=== PATIENT | male | born 1955 | race Caucasian/White ===

== ENCOUNTER 2019-05-12 12:15 | Emergency (ER) | payer OTHER ==
[2019-05-12 13:23] VITALS: BP 129/81; PULSE 74
[2019-05-12] MEDS ORDERED: Vancomycin 1GM/ Ns 250ML*** 1 GM/250 ML IVPB IV ONE (13:25)
[2019-05-12] MEDS ORDERED: Rabavert 2.5 UNITS IM ONE (13:25)
[2019-05-12] MEDS ORDERED: IMOVAX RABIES VACCINE 2.5 UNITS IM ONE (13:27)
[2019-05-12] MEDS ORDERED: TORAdol 30 mg Injection IV ONE (13:27)
--- NOTE | 2019-05-12 13:37 | ERPHSYRPT ---
- History of Present Illness Time Seen by Provider: 05/12/19 13:31 Source: patient Exam Limitations: no limitations Patient Subjective Stated Complaint: Bit by a dog a week ago today in [place], [place], has been self treating, now has a open wound of 2cm x 4cm and is turning green, huge reddened area around the wound, pt knows nothing about the dog and a report was not made in [place] Triage Nursing Assessment: Pt walked into the ER, vitals wnl, pulses normal, denies pain, Physician History: Mr Bell is a 64 years old male with hx of HTN, was bit by a dog a week ago today in [place], [place], has been self treating, now has a open wound of 2cm x 4cm and is turning green, huge reddened area around the wound, patient knows nothing about the dog and a report was not made in [place] Timing/Duration: week(s) (1 weeks ago) Severity: severe Modifying Factors: Improves With: immobilization Associated Symptoms: denies symptoms Allergies/Adverse Reactions: No Known Drug Allergies Allergy (Verified 05/12/19 13:28) Home Medications: Amlodipine Besylate 5 mg [Norvasc 5 mg] 5 mg PO DAILY 05/12/19 [History] Buspirone HCl [Buspar] 10 mg PO TID 05/12/19 [History] Famotidine [Pepcid] 40 mg PO DAILY 05/12/19 [History] Lisinopril 40 mg PO DAILY 05/12/19 [History] Metoprolol Succinate 25 mg Xl* [Toprol-Xl 25MG Tablets] 25 mg PO DAILY [History] Venlafaxine HCl [Venlafaxine HCl ER] 225 mg PO DAILY 05/12/19 [History] Hx Tetanus, Diphtheria Vaccination/Date Given: No - Review of Systems Constitutional: No Fever, No Chills Eyes: No Symptoms Ears, Nose, & Throat: No Symptoms Respiratory: No Cough, No Dyspnea Cardiac: No Chest Pain, No Edema, No Syncope Abdominal/Gastrointestinal: No Abdominal Pain, No Nausea, No Vomiting, No Diarrhea Genitourinary Symptoms: No Dysuria Musculoskeletal: No Back Pain, No Neck Pain Skin: Cellulitis (open bite wound on left lower leg with dark santana tissue with foul smelling, no active dischage), No Rash Neurological: No Dizziness, No Focal Weakness, No Sensory Changes Psychological: No Symptoms Endocrine: No Symptoms All Other Systems: Reviewed and Negative - Past Medical History Cardiac History: Hypertension Psycho-Social History: Anxiety, Depression - Past Surgical History Past Surgical History: Yes Cardiac: Cardiac Stent Musculoskeletal: Orthopedic Surgery Other Surgical History: stents in bilateral lower legs, ablasion - Social History Smoking Status: Current every day smoker How long have you smoked: 6 years Exposure to second hand smoke: Yes Drug Use: none Patient Lives Alone: Yes - Nursing Vital Signs Nursing Vital Signs: Initial Vital Signs Pulse Rate 74 05/12/19 12:58 Blood Pressure 129/81 05/12/19 12:58 O2 Sat by Pulse Oximetry 99 05/12/19 12:58 Pain Scale Pain Intensity 0 - Physical Exam General Appearance: no apparent distress, alert Eye Exam: PERRL/EOMI, eyes nml inspection Ears, Nose, Throat Exam: normal ENT inspection, TMs normal, pharynx normal, moist mucous membranes Neck Exam: normal inspection, non-tender, supple, full range of motion Respiratory Exam: normal breath sounds, lungs clear, No respiratory distress Cardiovascular Exam: regular rate/rhythm, normal heart sounds, normal peripheral pulses Gastrointestinal/Abdomen Exam: soft, normal bowel sounds, No tenderness, No mass Back Exam: normal inspection, normal range of motion, No CVA tenderness, No vertebral tenderness Extremity Exam: normal inspection, normal range of motion, pelvis stable, other (open bite wound on left lower leg with dark santana tissue with foul smelling, no active dischage) Neurologic Exam: alert, oriented x 3, cooperative, normal mood/affect, nml cerebellar function, nml station & gait, sensation nml, No motor deficits Skin Exam: normal color, warm, dry, other (open bite wound on left lower leg with dark santana tissue with foul smelling, no active dischage), No rash Lymphatic Exam: No adenopathy SpO2: 99 - Course Nursing assessment & vital signs reviewed: Yes - Radiology Exams Lower Leg X-ray Interpretation: Reviewed by me Ordered Tests: Active Orders 24 hr Category Date Time Status [employer] STAT Care 05/12/19 13:25 Active IV Insertion STAT Care 05/12/19 13:25 Active Pulse Oximetry (ED) STAT Care 05/12/19 13:25 Active LOWER LEG Stat Exams 05/12/19 13:38 Ordered BLOOD CULTURE Stat Lab 05/12/19 13:50 Received CBC W DIFF Stat Lab 05/12/19 13:25 Completed CMP Stat Lab 05/12/19 13:25 Completed Lactic Acid Stat Lab 05/12/19 13:25 Completed Medication Summary Generic Name Dose Route Start Last Admin Trade Name Lexie PRN Reason Stop Dose Admin Vancomycin HCl 1 gm in 250 mls @ 167 mls/hr 05/12/19 13:25 05/12/19 13:42 Vancomycin 1gm/ Ns 250ml IV 05/12/19 14:54 167 mls/hr STAT ONE Administration Discontinued Medications Generic Name Dose Route Start Last Admin Trade Name Lexie PRN Reason Stop Dose Admin Vancomycin HCl Confirm 05/12/19 13:38 Vancomycin 1gm/ Ns 250ml Administered 05/12/19 13:39 Dose 250 mls @ ud IV .STK-MED ONE Ketorolac Tromethamine 30 mg 05/12/19 13:27 05/12/19 13:51 Toradol 30 Mg Injection IV 05/12/19 13:28 30 mg STAT ONE Administration Ketorolac Tromethamine Confirm 05/12/19 13:39 Toradol 30 Mg Injection Administered 05/12/19 13:40 Dose 30 mg .ROUTE .STK-MED ONE Rabies Vaccine 2.5 units 05/12/19 13:25 05/12/19 13:43 Rabavert 2.5 Units IM 05/12/19 13:26 2.5 units .ONCE ONE Administration Lab/Rad Data: Laboratory Result Diagrams 05/12/19 13:25 05/12/19 13:25 Laboratory Results 05/12/19 05/12/19 05/12/19 Range/Units 13:25 13:25 13:25 WBC 8.6 (4.0-10.5) K/mm3 RBC 4.68 (4.1-5.6) M/mm3 Hgb 16.5 (12.5-18.0) gm/dl Hct 48.6 (42-50) % MCV 103.8 H (78-100) fl MCH 35.3 H (26-32) pg MCHC 34.0 (32-36) g/dl RDW 12.8 (11.5-14.0) % Plt Count 226 (150-450) K/mm3 MPV 9.9 H (6-9.5) fl Gran % 58.3 (36.0-66.0) % Eos # (Auto) 0.11 (0-0.5) Absolute Lymphs (auto) 2.25 (1.0-4.6) Absolute Monos (auto) 1.17 (0.0-1.3) Lymphocytes % 26.3 (24.0-44.0) % Monocytes % 13.7 H (0.0-12.0) % Eosinophils % 1.3 (0.00-5.0) % Basophils % 0.4 (0.0-0.4) % Absolute Granulocytes 5.00 (1.4-6.9) Basophils # 0.03 (0-0.4) Sodium 138 (137-145) mmol/L Potassium 4.3 (3.5-5.1) mmol/L Chloride 102 (98-107) mmol/L Carbon Dioxide 27 (22-30) mmol/L Anion Gap 13.5 (5-15) MEQ/L BUN 11 (9-20) mg/dL Creatinine 1.00 (0.66-1.25) mg/dL Estimated GFR > 60.0 ML/MIN Glucose 89 (74-106) mg/dL Lactic Acid 1.4 (0.4-2.0) Calcium 10.1 (8.4-10.2) mg/dL Total Bilirubin 0.50 (0.2-1.3) mg/dL AST 26 (17-59) U/L ALT 22 (0-50) U/L Alkaline Phosphatase 99 (38-126) U/L Serum Total Protein 8.4 H (6.3-8.2) g/dL Albumin 4.6 (3.5-5.0) g/dL - Progress Progress: unchanged Progress Note: 05/12/19 13:35 Vancomycin 1 g IV, PT bag given, rabies vaccine given. wound cleaning and wound care done 05/12/19 14:20 Patient is informed about his diagnoses which include infected dog bite on his left lower leg which is most likely secondary to methicillin-resistant staph aureus. Vancomycin 1 g intravenously already given in IV bag in ER. Patient is strongly recommended that he should contact his primary care physician tomorrow or he should go to the emergency room where his primary care physician has attending feliciano Bailey. He will need a wound debridement by surgeon as soon as possible as as well as he will also need IV antibiotic for wound infection. Verbalize instructions understood. Counseled pt/family regarding: lab results, diagnosis, need for follow-up, rad results - Departure Departure Disposition: Home Clinical Impression: Cellulitis and abscess of left leg Dog bite of left lower leg Qualifiers: Encounter type: initial encounter Qualified Code(s): S81.852A - Open bite, left lower leg, initial encounter; W54.0XXA - Bitten by dog, initial encounter Condition: Stable Critical Care Time: Yes Critical Care Time(excluding separately billable procedures): Critical 30-74 mins Referrals: DOCTOR,NO FAMILY [Primary Care Provider] - Instructions: Animal Bites (DC) Additional Instructions: Please be advised that as soon as you reach your town. you should. contact your primary care physician as well as go to emergency room for wound check tomorrow. You will require further care for your wound. Please take your antibiotic as prescribed as well as complete your rabies immunization course as advise. TIA BELL was seen on 05/12/19 n the Emergency Room. At that time you were treated for an emergent condition, during your visit Laboratory, Radiology and/or other procedures may have been ordered. It is very important that you follow-up with your Primary Care Physician NO FAMILY DOCTOR within the next 24-48 hours to review your Emergency Room visit and the final results of testing that was ordered. Some test results such as Urine Cultures, Blood Cultures, and other cultures if ordered will not be finalized for 24-48 hours. If you do not have a Primary Care Provider please call the medical records department at [phone] ext [phone] to obtain a copy of your results or you may sign into our patient portal to obtain these results by visiting us @ [email or web address] and completing the following steps: 1. Click on the Patient Portal link 2. Click the Patient Self Enrollment Link to complete the enrollment form and entering your 3. Once the enrollment form is completed you will receive an email with a temporary ID and password at the email address you provided. 4. Next choose a user name and password. Your user name must be at least 4 characters long and your password must be at least 4 characters long. 5. Choose a security question from the list and provide your answer to the question. If you already have signed into the Health Portal you may access your Health Care Information 28/03 by the following steps: 1. Login to our website @ [email or web address] 2. Enter your original user name and password. FAQS The [facility] Portal is an online tool that contains your Lab Results, Radiology Reports, Visit History, Discharge Instructions and Health Summary Lab and Radiology Results will not be available for 72 hours on the portal. The Portal is a secure site, passwords are encryted and URLs are re-written so they cannot be copied and pasted. You and authorized family members are the only ones who can access your Portal. Also there is a timeout feature that protects your information if you leave the Portal page open. If you have technical difficulty please use the Contact Us link on the page this will allow you to submit any questions you have regarding the Portal or you may contact the Medical Record Department at [phone]. Discharge/Care Plan CJCORTNEYTIA HACKETT was seen on 05/12/19 in the Emergency Room. The patient was counseled regarding Diagnosis,Lab results, Imaging studies, need for follow up and when to return to the Emergency Room. Prescriptions given: Discharge Note I have spoken with the patient and/or caregivers. I have explained the patient' s condition, diagnosis and treatment plan based on the information available to me at this time. I have answered the patient's and/or caregiver's questions and addressed any concerns. The patient and/or caregivers have as good understanding of the patient's diagnosis, condition and treatment plan as can be expected at this point. The vital signs have been stable. The patient's condition is stable and appropriate for discharge from the emergency department. The patient will pursue further outpatient evaluation with the primary care physician or other designated or consulting physician as outlined in the discharge instructions. The patient and/or caregivers are agreeable to this plan of care and follow-up instructions have been explained in detail. The patient and/or caregivers have received these instruction. The patient/and or caregivers are aware that any significant change in condition or worsening of symptoms should prompt an immediate return to this or the closest emergency department or call 911. Prescriptions: Levofloxacin [Levaquin 500 MG Tablet] 500 mg PO QAM #10 tablet
[2019-05-12] MEDS ORDERED: Vancomycin 1GM/ Ns 250ML*** 250 ML IV ONE (13:38)
[2019-05-12] MEDS ORDERED: TORAdol 30 mg Injection ONE (13:39)
[2019-05-12 14:04] LABS: BASOPHIL % 0.4 % (0.0-0.4); Basophil (Absolute #) 0.03 (0-0.4); Eosinophil % 1.3 % (0.00-5.0); Eosinophil (Absolute #) 0.11 (0-0.5); Granulocytes % 58.3 % (36.0-66.0); Hematocrit 48.6 % (42-50); Hemoglobin 16.5 gm/dl (12.5-18.0); Lymphocyte (Absolute #) 2.25 (1.0-4.6); Lymphocytes % 26.3 % (24.0-44.0); Mean Cell Volume 103.8 fl (78-100); Mean Corpuscular Hemoglobin 35.3 pg (26-32); Mean Platelet Volume 9.9 fl (6-9.5); Monocyte (Absolute #) 1.17 (0.0-1.3); Monocytes % 13.7 % (0.0-12.0); Platelet Count 226 K/mm3 (150-450); Red Blood Count 4.68 M/mm3 (4.1-5.6); Red Cell Distribution Width 12.8 % (11.5-14.0); White Blood Count 8.6 K/mm3 (4.0-10.5)
[2019-05-12 14:14] LABS: ALBUMIN 4.6 g/dL (3.5-5.0); ALKALINE PHOSPHATASE 99 U/L (38-126); ANION GAP 13.5 MEQ/L (5-15); BLOOD UREA NITROGEN 11 mg/dL (9-20); CHLORIDE 102 mmol/L (98-107); Calcium 10.1 mg/dL (8.4-10.2); Carbon Dioxide 27 mmol/L (22-30); Glucose 89 mg/dL (74-106); Potassium 4.3 mmol/L (3.5-5.1); SGOT/AST 26 U/L (17-59); SGPT/ALT 22 U/L (0-50); SODIUM 138 mmol/L (137-145); Total Protein 8.4 g/dL (6.3-8.2)
[2019-05-12 15:53] VITALS: O2SAT 96
--- NOTE | 2019-05-12 19:15 | XRAY ---
Indication: Nonhealing dog bite one week ago. Comparison: None 2 views of the left lower leg demonstrates focal mid medial soft tissue swelling/laceration and diffuse scattered vascular calcifications. No other bony, articular, or soft tissue abnormalities.
== END 2019-05-12 15:52 | disposition home or self-care (01) ==
LOC: ED 12:15
DX: L03.116 Cellulitis of left lower limb (principal); L02.416 Cutaneous abscess of left lower limb; S81.852A Open bite, left lower leg, initial encounter
CPT/HCPCS: 36000; 36415; 73590; 80053; 83605; 85025; 87040; 87070; 87077; 90471; 90675; 93041; 94760; 96365; 96374; 99284; 99291; J1885; J3370